=== PATIENT | female | born 1965 | race Hispanic/Latino ===

== ENCOUNTER 2016-07-15 08:35 | Day surgery (SDC) | payer BC ==
[~2016-07-15 08:35] MED LIST: OCUFLOX ONE
[2016-07-15] MEDS ORDERED: ZOFRAN IV PRN ×2 (09:28→10:06)
[2016-07-15] MEDS ORDERED: SUBLIMAZE IV PRN (09:28)
[2016-07-15] MEDS ORDERED: DILAUDID IV PRN (09:28)
--- NOTE | 2016-07-15 09:30 | Anesthesia Consultation ---
Anesthesia Consult and Med Hx Date of service: 07/15/16 - Airway Anesthetic Teeth Evaluation: Good ROM Head & Neck: Adequate Mental/Hyoid Distance: Adequate Mallampati Class: Class II Intubation Access Assessment: Probably Good - Pulmonary Exam CTA: Yes (blbs clear) - Cardiac Exam Cardiac Exam: RRR - Pre-Operative Health Status ASA Pre-Surgery Classification: ASA2, ASA3 Proposed Anesthetic Plan: General - Pulmonary Hx Smoking: Yes (former) - Central Nervous System Hx Psychiatric Problems: No - Other Systems Hx Alcohol Use: Yes (occas) Hx Cancer: Yes (squamous cell CA, nose & chest)
--- NOTE | 2016-07-15 09:30 | Anesthesia Day of Surgery ---
Anesthesia Day of Surgery - Day of Surgery Patient Examined: Yes Patient H&P Reviewed: Yes Patient is NPO: Yes Beta Blockers: No Cardiac Clearance: No Pulmonary Clearance: No
[2016-07-15] MEDS ORDERED: VERSED IV NR (10:00)
[2016-07-15] MEDS ORDERED: NACL 0.9% 1000 ML 1,000 ML IV SCH (10:00)
[2016-07-15] MEDS ORDERED: PEPCID PO NR (10:00)
[2016-07-15] MEDS ORDERED: ANCEF/STERILE WATER 2 GM/20 ML IV NR (11:00)
[2016-07-15] MEDS ORDERED: SUBLIMAZE ONE (11:46)
[2016-07-15] MEDS ORDERED: XYLOCAINE MPF 2% ONE (11:46)
[2016-07-15] MEDS ORDERED: DIPRIVAN 10 MG/ML IV ONE (11:47)
[2016-07-15] MEDS ORDERED: ZOFRAN ONE (12:29)
[2016-07-15] MEDS ORDERED: DECADRON ONE (12:29)
[2016-07-15] MEDS ORDERED: QUELICIN ONE (12:33)
[2016-07-15] MEDS ORDERED: ZEMURON IV ONE (12:33)
[2016-07-15] MEDS ORDERED: GELFOAM TP ONE (13:29)
[2016-07-15] MEDS ORDERED: XYLOCAINE 2%/ EPI 1:50,000 (DENTAL) INFILTRATI ONE (13:30)
[2016-07-15] MEDS ORDERED: ADRENALIN IV ONE (13:30)
[2016-07-15] MEDS ORDERED: NACL 0.9% IR ONE ×2 (13:30→13:31)
[2016-07-15] MEDS ORDERED: DILAUDID ONE (13:30)
[2016-07-15] MEDS ORDERED: WATER FOR IRRIG STERILE IR ONE (13:30)
--- NOTE | 2016-07-15 15:40 | Short Stay Summary ---
Short Stay Documentation Date of service: 07/15/16 - Allergies and Medications Current Medications: Allergies hydrocodone Allergy (Verified 07/12/16 11:41) Vomiting Home Medications Medication Instructions Recorded Confirmed Last Taken Type Ergocalciferol(Vitamin D2)(Nf) 400 unit PO DAILY 07/12/16 07/15/16 07/14/16 09: 00 History [Vitamin D (Nf)] Gabapentin [Neurontin] 1,200 mg PO HS 07/12/16 07/15/16 07/14/16 21:00 History Ibuprofen [Motrin 800 MG tab] 800 mg PO TID 07/12/16 07/15/16 07/14/16 21:00 History Multivitamin Tab [Multiple Vitamin 1 each PO QDAY 07/12/16 07/15/16 07/14/16 09: 00 History TAB (Theragran)] Tramadol HCl [traMADol] 50 mg PO BID 07/12/16 07/15/16 07/03/16 09:00 History Vitamin B Complex 1 each PO DAILY 07/12/16 07/15/16 07/14/16 09:00 History Active Medications Cefazolin Sodium (Ancef/Sterile Water 2 Gm/20 Ml) 2 gm IV PREOP NR Stop: 07/15/16 23:59 Famotidine (Pepcid) 20 mg PO PREOP NR Stop: 07/15/16 23:59 Last Admin: 07/15/16 09:54 Dose: 20 mg Fentanyl (Sublimaze) 50 mcg IV Q5MIN PRN PRN Reason: Pain , Severe (7-10) Stop: 07/15/16 18:00 Hydromorphone HCl (Dilaudid) 0.25 mg IV Q5MIN PRN PRN Reason: Pain, Moderate (4-6) Stop: 07/15/16 18:00 Sodium Chloride (Nacl 0.9% 1000 Ml) 1,000 mls @ 100 mls/hr IV DIRECT JERZY Last Admin: 07/15/16 09:55 Dose: 100 mls/hr Midazolam HCl (Versed) 2 mg IV PREOP NR Stop: 07/15/16 23:59 Last Admin: 07/15/16 10:10 Dose: 2 mg Ondansetron HCl (Zofran) 4 mg IV ONCE PRN PRN Reason: Nausea And Vomiting Stop: 07/15/16 18:00 - Brief post op/procedure progress note Date of procedure: 07/15/16 Pre-op diagnosis: 1. Right attic cholesteatoma; 2. Right attic TM perforation Post-op diagnosis: same Procedure: 1. right tympanoplasty with canal wall up mastoidectomy and ossicular chain reconstruction using 1.5 mm long titanium partial ossicular replacement prosthesis (PORP) 2. Harvesting of tragal cartilage 3. Monitoring of facial nerve for 1 hour 4. Microdissection using operating microscope Anesthesia: other (general via laryngeal mask anesthesia) Findings: Attic tympanic membrane perforation, and attic cholesteatoma with involvement of head of malleus and body of incus. Chronic mastoiditis. Surgeon: LAURA JEROME Estimated blood loss: minimal Pathology: list (Attic cholesteatoma) Specimen disposition: to lab Condition: stable - Disposition Condition at discharge: Good Disposition: DISCHARGED TO HOME OR SELFCARE Short Stay Discharge Plan Activity: advance as tolerated Wound: per your surgeon's advice Follow up with: LAURA JEROME MD [Staff Physician] - 07/16/16 Prescriptions: HYDROcodone/APAP 7.5-325 [[place] 7.5/325] 1 each PO Q8HR PRN #14 tablet PRN Reason: Pain Promethazine [Phenergan TAB] 12.5 mg PO Q8HR PRN #10 tab PRN Reason: Nausea
--- NOTE | 2016-07-15 15:56 | Post Anesthesia Evaluation ---
- Post Anesthesia Evaluation Patient Participated: Yes Airway Patent: Yes Stable Respiratory Function: Yes Nausea/Vomiting: No Temp > 96.8F: Yes Pain Manageable: Yes Adequeate Hydration: Yes Anesthesia Complications: No Block Receding Appropriately: Not Applicable Patient on Ventilator: No
[2016-07-15] MEDS ORDERED: NORCO 7.5/325 PO PRN (16:29)
[2016-07-15] MEDS ORDERED: PHENERGAN PO PRN (16:35)
[2016-07-15 17:44] VITALS: BP 134/82
--- NOTE | 2016-07-16 02:01 | Admit Criteria Form ---
Admission Criteria Documentation: AMBULATORY SURGERY EXCEPTION CRITERIA Ambulatory Surgery Exception Criteria ( Place 'X' for any and all applicable criteria): Surgery or procedure performed on ambulatory basis may require inpatient stay for[A] ANY ONE of the following(1)(2)(3)(4)(5)(6)(7)(8)(9): [X] I. A preoperative situation, condition, or finding that warrants inpatient stay as indicated by ANY ONE of the following: [] a) Inpatient care needed because of severity of a disease or condition rather than the surgery (eg, severe cardiac or respiratory disease, severe infection) (15) (16 ) (17) (18) [] b) Emergent procedure (eg, angioplasty for acute ischemia)(19) [] c) Complex surgical approach or situation as indicated by ANY ONE of the following(3): [] i) Open approach needed instead of usual endoscopic, transcatheter, or other less invasive procedure [] ii) Difficult approach because of previous operation [] iii) Airway monitoring required after open neck procedures(20)(21) [] iv) Large mass requiring unusually extensive dissection [] v) Additional complicating feature requiring inpatient care (eg, drain management)(22(23): [X] d) Major surgery in a pt with high anesthetic risk as indicated by ANY ONE of the following (2)(3)(5)(7)(8): [X] i) ASA risk class III or higher (severe systemic disease impairing function) [D] [] ii) Advanced age (eg, older than 85 years)(14)(24) [] iii) Symptomatic heart failure(25) [] iv) Symptomatic asthma or COPD(8)(21) [] v) Morbid obesity with hemodynamic or respiratory problems(20)( 21)(26)(27) [] vi) Obstructive sleep apnea(20)(21) [] vii) Former premature infants who are younger than 60 weeks [] viii) High risk for severe postoperative abnormalities (eg, severe postoperative hypocalcemia after parathyroidectomy for severe hyperparathyroidism)(27)( 28) [] ix) Unstable angina(25) [] e) Drug-related risk requiring inpatient stay as indicated by ANY ONE of the following(5)(10)(14)(32)(33) [] i) Procedure requires discontinuing drugs or other therapy (eg , antiarrhythmic medication, antiseizure medication), which necessitates inpatient observation or treatment.(18)(31) [] ii) Major surgery and high risk drug use as indicated by ANY ONE of the following: [] 1) Active abuse of cocaine or similar drug [] 2) Monoamine oxidase inhibitor use [] 3) Other drug identified as posing risk [] f) Inadequate outpatient care situation as indicated by ANY ONE of the following(5)(10)(14)(32)(33) [] i) Patient lives remote from medical facility and procedure has urgent complication potential, and temporary nearby residence cannot be arranged [] ii) Patient will have postprocedure incapacitation and inadequate assistance at home, or alternative level of care cannot be arranged. [] iii) Patient will have long general anesthesia or procedure side effect resolution time, and competent person to stay with patient on first postoperative night at home or alternative level of care cannot be arranged. []iv) Other inadequate outpatient situation that cannot be handled by other means [] II. A perioperative event, condition, or finding that warrants inpatient stay as indicated by ANY ONE of the following (1)(2)(3): [] a) Inadequate physiologic recovery: cardiovascular, respiratory, or hemodynamic status not normal or near preoperative baseline(18) [] b) Hemodynamic instability [] c) Patient not alert with near normal or baseline mental status [] d) Temperature not normal or as expected and not appropriate for outpatient treatment of condition [] e) Ambulatory or appropriate activity level status not yet achieved post procedure [E](34)(35)(36) [] f) Operative site not appropriate (eg, unexpected or excessive drainage or bleeding) [] g) Postoperative effects not resolved or adequately managed (eg, significant pain or vomiting not appropriate for outpatient or next level of care)(10)(12) [] h) Complicating features requiring inpatient care as indicated by ANY ONE of the following(37): [] i) Severe complications of procedure (eg, bowel injury, airway compromise, vascular injury,severe hemorrhage) [] ii) Extensive (eg, dissection far beyond usual scope of procedure ) or prolonged (eg, 120 minutes beyond usual) surgery needed requiring inpatient postoperative care [] iii) Conversion to an open or complex procedure that requires inpatient care (eg, open vs laparoscopic cholecystectomy, abdominal vs vaginal hysterectomy)(38) [] iv) Comorbid condition or test result identified during or post procedure that requires inpatient care (7) [] v) Malignant hyperthermia(30) [] vi) Other complicating feature requiring inpatient care(22)(23) Inpatient stay may be needed until ALL of the following are present (1)(2)(3)(4) (5)(6)(10)(14)(33)(40): []a) Physiologic recovery: cardiovascular, respiratory, and hemodynamic status normal or near preoperative baseline []b) Hemodynamic stability []c) Patient alert, with near normal or baseline mental status []d) Temperature appropriate: patient afebrile or temperature appropriate for outpt treatment of condition []e) Activity level appropriate: ambulatory or appropriate activity level post procedure []f) Operative site appropriate as indicated by ALL of the following: []i) Site dry or with expected drainage []ii) Any blood noted is as expected for procedure. []g) Postoperative effects resolved or managed as indicated by ALL of the following: []i) Pain management appropriate for outpatient (or next level of) care(10) []ii) Minimal nausea and vomiting: if present, successfully treated with oral medication(12) []iii) Headache, dizziness, or drowsiness (if present) are mild. []h) Voiding status acceptable as indicated by ANY ONE of the following: []i) Voiding spontaneously []ii) No voiding but instructions given for follow-up in 6 to 8 hours []iii) Urinary catheter in place, and instructions given for follow-up []i) Complicating features requiring inpatient care manageable at a lower level of care(37) []j) Comorbid conditions manageable at a lower level of care(37) The original [employer] content created by [employer] has been revised. The portions of the content which have been revised are identified through the use of italic text or in bold, and [facility] [email or web address] has neither reviewed nor approved the modified material. All other unmodified content is copyright [employer]. Please see references footnoted in the original [employer] edition 2016 Admission Criteria Met: Yes
--- NOTE | 2016-07-17 00:53 | Operative Report ---
PRINCIPAL DIAGNOSES: 1. Right attic cholesteatoma. 2. Right attic tympanic membrane perforation. 3. Conductive hearing loss in the right ear. PRINCIPAL SURGICAL PROCEDURES: 1. Right tympanoplasty with canal wall-up mastoidectomy with excision of attic cholesteatoma and with ossicular chain reconstruction using 1.5 mm long partial ossicular replacement prosthesis (PORP), made of titanium. 2. Harvesting of tragal cartilage. 3. Monitoring of the facial nerve for 1 hour and microdissection using the operating microscope. SURGEON: Krystal Rivera MD ANESTHESIA: General via laryngeal mask anesthesia. COMPLICATIONS: None. SPECIMENS: Excised cholesteatoma was submitted to pathology for permanent sectioning. ESTIMATED BLOOD LOSS: Not more than 10 mL of blood. INDICATION FOR SURGERY: The patient is a 50-year-old female who presented with conductive hearing loss in the right ear and also with attic tympanic membrane perforation with keratinaceous material, clinically suspicious for cholesteatoma in the attic and with CT scan demonstrating soft tissue density in the attic as well as in the antrum of the mastoid. Tympanoplasty and mastoidectomy with excision of cholesteatoma and ossicular chain reconstruction were recommended. DESCRIPTION OF PROCEDURE: The patient was taken to the operating room and was placed on the operating table in supine position. After satisfactory plane of general anesthesia via laryngeal mask anesthesia was achieved, the head was gently turned to the left side exposing the right ear. Betadine was used to clean the retroauricular area and meatus and total of 1.6 mL of 2% Xylocaine in 1:50,000 epinephrine was injected into the retroauricular area in lateral aspect of the external ear canal. The ear was then prepped and draped in the usual manner. Surgical procedure started with making a retroauricular skin incision through the skin and subcutaneous tissue to the plane of fascia covering temporalis muscles superiorly and periosteum covering mastoid inferiorly. Bleeding was stopped using Bovie cautery. Fascia of the temporalis muscle was harvested. It was placed on fascia press and donor site was cauterized. T-type incision was made in the periosteum with a horizontal incision along the temporal line, second incision perpendicular to it towards mastoid tip. Periosteal flaps were elevated superiorly, posteriorly, and anteriorly and anteriorly, posterior bony ear canal was identified. Skin line in posterior canal was elevated and then incised 5 mm medial from the mastoid cortex with 11 blade from 6-12 o'clock and self-retaining retractors were inserted. We then made 2 incisions in the external auditory canal, one incision was positioned at 2 o'clock and second incision at 6 o'clock and both incisions were carried laterally. Tympanomeatal flap was elevated. Annulus was elevated in the posterior inferior quadrant and then we elevated tympanic membranes from the scutum all the way to the neck of the malleus where we identified the opening into the attic and then skipped the area where the cholesteatoma was extending in attic and then elevated the annulus all the way to 2 o'clock. At this point, we initiated cortical mastoidectomy with 6 mm cutting khai with continuous suction and irrigation, saucerized the edges, skeletonized the sigmoid sinus and middle fossa dura; identified with 4 mm gustavo khai, the position of the mastoid segment of the facial nerve and then focused on the antrum that we widened with 4 mm gustavo khai and later with 3 mm gustavo bur and once we approached the cholesteatoma in the lateral attic, we stopped since we did not want to cause sensorineural hearing loss by touching the short process of incus with the khai. We then continued with dissection in the middle ear. The incudostapedial joint was identified. It was not involved with cholesteatoma and with a joint knife. We also cut the neck of the malleus and then very gently pushed the head of the malleolus as well as incus superiorly into the attic and then through the mastoidectomy and posterior atticotomy, we removed the ossicles together with cholesteatoma that was very gently peeled off the wall of the lateral attic and then we passed 3 cottonoids from inside, meaning from the middle ear, into the attic and we pulled it out via mastoidectomy removing residual of keratinaceous material from the superior and posterior wall of the attic. Once this was completed, we used micro elevators and round knifes. We made sure that no cholesteatoma was left behind and then focused on reconstruction. Tragal cartilage was harvested with separate incision and a piece measuring 6 x 4 mm was harvested and donor site was cauterized with bipolar cautery and the incision was closed with 4 interrupted 5-0 Prolene sutures using mattress sutures. After that, the perichondrium was peeled off the cartilage and cartilage was cut, so that the perichondrium was left attached to the piece of cartilage measuring 3 x 2.5 mm with a cuff of perichondrium and we placed it in the bony defect in the attic area through which cholesteatoma managed to get into the attic. We then reconstructed ossicular chain using 1.5 mm partial ossicular replacement prosthesis made of titanium. Remainder of tragal cartilage was placed on a García block. We cut it in a very thin layer measuring not more than 1/3rd of mm in diameter, while the surface area was 4 mm in diameter. We placed it over the partial ossicular replacement prosthesis and fascia that was previously harvested was used to repair the attic perforation and we used it to cover the cartilage and perichondrium and the defect of the scutum. We then laid tympanomeatal flap over the fascia and reconstructed the defect in the scutum and then packed external auditory canal with moist Gelfoam soaked with ofloxacin. Periosteal flaps were closed with 4-0 Vicryl, subcutaneous layer of skin incision was closed with 4-0 Vicryl, 5-0 fast-absorbing gut was used to close the skin incision after we placed a 1/4 inch [place] drain to drain the retroauricular wound. Mastoid dressing was applied. Following completion of the surgical procedure, the patient was extubated in the operating room and then transferred to recovery room in stable and satisfactory condition. [facility]# [id number] MAYANK/BRANDI
== END 2016-07-15 17:45 | disposition home or self-care (01) ==
LOC: OR 08:35
PROVIDERS: ATTEND Otolaryngology Sleep Medicine
DX: H72.11 Attic perforation of tympanic membrane, right ear (principal); H71.01 Cholesteatoma of attic, right ear; H90.11 Conductive hearing loss, unilateral, right ear, with unrestricted hearing on the contralateral side; Z87.891 Personal history of nicotine dependence; Z72.89 Other problems related to lifestyle; Z85.828 Personal history of other malignant neoplasm of skin; Z98.51 Tubal ligation status; Z98.890 Other specified postprocedural states
CPT/HCPCS: 69637; 88304; A4217; A4649; J0171; J0330; J0690; J1170; J2250; J2704; J3010; J7030; L8613; Q0169